=== PATIENT | female | born 1990 | race Hispanic/Latino ===

== ENCOUNTER 2016-10-11 15:32 | Emergency (ER) | payer OTHER ==
[2016-10-11 15:39] VITALS: BP 110/75; PULSE 76; RESP 18; TEMP 98.2; O2SAT 98
--- NOTE | 2016-10-11 16:45 | C.PDOC ---
History Of Present Illness 26 yo female come in for evaluation of Left groin pain mass gradually developed for apst 3 days. Pt admits, similar sx in past. Otherwise, denies fever, chills , abd. pain, N/V, back pain, UTI sx, denies wound draining. Ambulate to Ed for evaluation, not in any apparent distress. Time Seen by Provider: 10/11/16 16:04 Chief Complaint (Nursing): Abnormal Skin Integrity History Per: Patient Past Medical History Reviewed: Historical Data, Nursing Documentation, Vital Signs Vital Signs: Last Vital Signs Temp 98.2 F 10/11/16 15:37 Pulse 76 10/11/16 15:37 Resp 18 10/11/16 15:37 BP 110/75 10/11/16 15:37 Pulse Ox 98 10/11/16 15:37 - Medical History PMH: No Chronic Diseases - [facility] Procedures CLOSURE SKIN & SUBCUTANEOUS NEC (12/19/04) Family History: States: No Known Family Hx - Social History Hx Alcohol Use: No Hx Substance Use: No - Immunization History Hx Tetanus Toxoid Vaccination: No Hx Influenza Vaccination: No Hx Pneumococcal Vaccination: No Review Of Systems Except As Marked, All Systems Reviewed And Found Negative. Constitutional: Negative for: Fever, Chills ENT: Negative for: Throat Pain Gastrointestinal: Negative for: Nausea, Vomiting, Abdominal Pain Genitourinary: Negative for: Dysuria, Frequency Musculoskeletal: Negative for: Back Pain Skin: Positive for: Lesions Physical Exam - Physical Exam Appears: Well, Non-toxic, No Acute Distress Skin: Normal Color, Warm Gastrointestinal/Abdominal: Soft, No Tenderness, No Distention, No Guarding Back: No CVA Tenderness Pelvic: Vaginal Bleeding (on menstrual bleeding), Other (Left groin area small tender mass 2@2cm, (+) erythema, (+) flactualnce with scant purulent discharge.) Extremity: No Pedal Edema Neurological/Psych: Oriented x3, Normal Speech ED Course And Treatment O2 Sat by Pulse Oximetry: 98 Progress Note: On re-eavluation, pt is afebrile, hemodynamicaly stable. non- toxic. Ambulatory in ED with stable gait. ENTL no acute findings. Abd: benign. : exam c/w left groin abscess s/p I&D. Pt advised on course of ds. ref. to f/u with [facility] In 2 days for re-eavl. return if any new changes. - Incision & Drainage Of Abscess Anesthesia: Lidocaine 2% Prep Used: Betadine Procedure: Incised W/Scalpel Blade#: (11), Drained Pus (4ml), Irrigated Cavity W /Saline, Packed W/Gauze Disposition Counseled Patient/Family Regarding: Diagnosis, Need For Followup, Rx Given - Disposition [facility] Disposition: HOME/ ROUTINE Disposition Time: 16:44 Condition: STABLE Additional Instructions: Take antibiotic as prescribed Follow up with [facility] or ED in 2 days for wound re-check, packing removal as indicated return to ED at any time if any worsening or new changes. Prescriptions: Doxycycline Hyclate 100 mg PO BID #14 cap Instructions: Abscess Incision and Drainage (ED) - Clinical Impression Clinical Impression: Abscess
== END 2016-10-11 17:06 | disposition home or self-care (01) ==
LOC: C.ER 15:32
DX: L02.214 Cutaneous abscess of groin (principal)